=== PATIENT | female | born 1970 | race Caucasian/White ===

== ENCOUNTER 2019-06-26 20:24 | Emergency (ER) | payer OTHER ==
[~2019-06-26] VITALS: Ht 172 cm; Wt 77.0 kg
--- NOTE | 2019-06-26 21:10 | ED Fall/Injury ---
General Stated Complaint: FALL/R SHOULDER PAIN Source: patient Exam Limitations: no limitations History of Present Illness Date Seen by Provider: June 26, 2019 Time Seen by Provider: 21:08 Initial Comments To ER with reports of a fall down 4 stairs about 1 hour prior to arrival. She has since developed right shoulder pain after landing on it. She did lose c onsciousness briefly. She also has some neck pain. 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 Occurred: this evening Severity: moderate Injuries/Pain Location: head, neck, upper extremity Loss of Consciousness: no loss of consciousness Allergies and Home Medications Allergies Coded Allergies: Sulfa (Sulfonamide Antibiotics) (Verified Allergy, Unknown, 06/26/19) Home Medications Hydrocodone/Acetaminophen 1 Each Tablet, 1 EACH PO Q4-6HR PRN for PAIN-MODERATE Prescribed by: LETY CARVAJAL on 06/26/196 Patient Home Medication List Home Medication List Reviewed: Yes Review of Systems Review of Systems Constitutional: see HPI Eyes: No Symptoms Reported Ears, Nose, Mouth, Throat: no symptoms reported Respiratory: no symptoms reported Cardiovascular: no symptoms reported Genitourinary: no symptoms reported Musculoskeletal: see HPI Skin: no symptoms reported Psychiatric/Neurological: No Symptoms Reported Past Zxghbyw-Gelbed-Jawtsq Hx Patient Social History Recent Foreign Travel: No Contact w/Someone Who Travel: No Physical Exam Vital Signs Vital Signs - First Documented 06/26/19 20:24 Temp 37.0 Pulse 95 Resp 20 B/P (MAP) 126/85 (99) Pulse Ox 95 O2 Delivery Room Air Capillary Refill : Height, Weight, BMI Height: '" Weight: lbs. oz. kg; BMI Method: General Appearance: WD/WN HEENT: PERRL/EOMI, normal ENT inspection Neck: non-tender, full range of motion Respiratory: no respiratory distress, no accessory muscle use Gastrointestinal: normal bowel sounds, soft Extremities: normal capillary refill (keeps right arm held against her side. Strong radial pulse.) Neurologic/Psychiatric: alert, normal mood/affect, oriented x 3 Skin: normal color Progress/Results/Core Measures Results/Orders My Orders Orders - LETY CARVAJAL APRN Ct Head/Cervical Spine Wo (06/26/19 21:05) Shoulder, Right, 3 Views (06/26/19 21:05) Forearm, Right, 2 Views (06/26/19 21:05) Hydrocodone/Apap 5/325 Tablet (Lortab 5 (06/26/19 21:15) Rx-Hydrocodone/Apap 5-325 Mg (Rx-Vicodin (06/26/19 22:30) Medications Given in ED Current Medications Medications Dose Ordered Sig/Gus Route Start Time Stop Time Status Last Admin Dose Admin Acetaminophen/ Hydrocodone Bitart 1 tab ONCE ONCE PO 06/26/19 21:15 06/26/19 21:16 DC 06/26/19 22:03 1 TAB Vital Signs/I&O 06/26/19 20:24 Temp 37.0 Pulse 95 Resp 20 B/P (MAP) 126/85 (99) Pulse Ox 95 O2 Delivery Room Air Departure Communication (Admissions) Rigid cervical collar removed at this time, stat read shows no acute intracranial abnormality and no fracture within the cervical spine. 2244. Impression Primary Impression: Closed fracture of distal clavicle Qualified Codes: S42.031A - Displaced fracture of lateral end of right clavicle, initial encounter for closed fracture Additional Impression: Shoulder contusion Qualified Codes: S40.011A - Contusion of right shoulder, initial encounter Disposition: HOME, SELF-CARE Condition: Stable Departure-Patient Inst. Decision time for Depature: 22:27 Referrals: NO,LOCAL PHYSICIAN (PCP) Primary Care Physician RASHAUN SIN MD, MICHAEL P MD Patient Instructions: Clavicle Fracture (DC) Add. Discharge Instructions: 1. Use the sling for comfort 2. Pain medication as directed 3. Ice pack to the area for 30 minutes a couple times a day. Follow-up with either one of the local orthopedic surgeons here who has been listed for you or an orthopedic surgeon in your hometown. Scripts Hydrocodone/Acetaminophen (Lorcet 5-325 mg Tablet) 1 Each Tablet 1 EACH PO Q4-6HR PRN for PAIN-MODERATE MDD 10 for 7 Days, #20 TAB Prov: LETY CARVAJAL APRN 06/26/19 Work/School Note: Work Release Form Date Seen in the Emergency Department: June 26, 2019 Return to Work: July 02, 2019 LETY CARVAJAL APRN June 26, 2019 21:10
[2019-06-26] MEDS ORDERED: HYDROcodone/APAP 5 MG/325 MG (LORTAB) TAB PO ONE (21:15)
[2019-06-26] MEDS ORDERED: HYDR-3870 PO (22:29)
[2019-06-26] MEDS ORDERED: RX-HYDROCODONE/APAP 5/325 MG #4 TAB PK PO PRN (22:30)
[2019-06-26 22:48] VITALS: BP 126/85
--- NOTE | 2019-06-27 06:24 | Diagnostic Imaging Report ---
PROCEDURE: CT head and CT cervical spine without contrast. TECHNIQUE: Multiple contiguous axial images were obtained through the brain and cervical spine without the use of intravenous contrast. Sagittal and coronal reformations through the cervical spine were then performed. Auto Exposure Controls were utilized during the CT exam to meet ALARA standards for radiation dose reduction. INDICATION: Fall with loss of consciousness and neck pain. Head: No hemorrhage, hydrocephalus, edema, mass, mass effect nor evidence for an elevation of the intracranial pressures. No calvarial fracture deformity. No paranasal sinus air-fluid level. No pneumocephalus. No findings of elevated pressures. The ventricular system nondilated and nondisplaced. No focal or generalized cerebral edema. CT cervical spine: Degenerative changes to the discs, endplates and facets of the lower cervical spine most notably C5-C6 and C6-C7. At C5-C6, osteophyte disc material results in moderate canal stenosis with mild right greater than left foraminal narrowing. There was, however no cervical fracture or traumatic malalignment. No paraspinal mass, hemorrhage or fluid collection. IMPRESSION: CT HEAD: Negative. CT cervical spine: Degenerative changes but no fracture or traumatic malalignment. Dictated by: Dictated on workstation # [id number]
--- NOTE | 2019-06-27 07:39 | Diagnostic Imaging Report ---
INDICATION: Fall FINDINGS: The radius and ulna appeared intact. No fracture or dislocation identified. IMPRESSION: No acute appearing abnormality. Dictated by: Dictated on workstation # [id number]
--- NOTE | 2019-06-27 07:39 | Diagnostic Imaging Report ---
INDICATION: Fall. FINDINGS: There is a fracture through the distal/lateral 3rd of the clavicle without disruption of the AC joint fragment. There is no pneumothorax. The visualized adjacent ribs and pleura are unremarkable. The glenohumeral joint unremarkable. IMPRESSION: Distal 3rd right clavicular fracture. Dictated by: Dictated on workstation # [id number]
== END 2019-06-26 22:49 | disposition home or self-care (01) ==
LOC: ER 20:26
DX: S42.031A Displaced fracture of lateral end of right clavicle, initial encounter for closed fracture (principal); S40.011A Contusion of right shoulder, initial encounter; Z88.2 Allergy status to sulfonamides; W10.9XXA Fall (on) (from) unspecified stairs and steps, initial encounter
CPT/HCPCS: 70450; 72125; 73030; 73090